=== PATIENT | male | born 1935 | race Caucasian/White ===

== ENCOUNTER 2017-11-18 02:00 | Inpatient (IN) | payer OTHER ==
[~2017-11-18] VITALS: Ht 170.2 cm; Wt 80.7 kg
[~2017-11-18 02:00] MED LIST: ATORVASTATIN CA10 M1 PO; AZULFIDINE500 M1 PO; DULOXETINE HCL30 MG PO; FERROUS SULFAT325 M3 PO; FLOMAX0.4 M1 PO; FOLIC ACID1 M1 PO; LISINOPRIL5 M1 PO; LOPRESSOR50 M1 PO; METHOTREXATE2.5 M2 PO; OMEPRAZOLE20 M2 PO; ST. JOSEPH ASPI81 M1 PO; TRAZODONE HCL50 M1 PO; TYLENOL EXTRA500 M2 PO; VERAPAMIL ER180 M1 PO
[2017-11-18] MEDS ORDERED: VITAMIN B-121000 MC3 (09:18)
--- NOTE | 2017-11-18 09:48 | Admission Core Measures ---
Acute Coronary Syndrome (CM) ACS Core Measures Acute Coronary Syndrome Diagnosis No Congestive Heart Failure (NEW) CHF Core Measures Congestive Heart Failure Diagnosis No Cerebrovascular Accident CVA Core Measures CVA/TIA Diagnosis No Venous Thromboembolism VTE Core Kira (View Protocol) VTE Risk Factors Surgery No Mechanical VTE Prophylaxis d/t N/A MechProphylax Ordered No VTE Pharm Prophylaxis d/t NA PharmProphylax ordered Problem List As ranked by this Provider includes Assessment & Plan 1. Unilateral primary osteoarthritis, right hip HOME MEDS Home Med List Acetaminophen (Tylenol Extra Strength) 500 MG TABLET 2 TAB PO BID pain ( Reported) Aspirin (Coryell Aspirin) 81 MG TABLET.DR 1 TAB PO DAILY HEARTHEALTH ( Reported) Atorvastatin Calcium 10 MG TABLET 1 TAB PO QPM CHOLESTEROL (Reported) Duloxetine HCl 30 MG CAPSULE.DR 3 CAP PO DAILY NERVE PAIN (Reported) Ferrous Sulfate 325 MG (65 MG IRON) TABLET 1 TAB PO DAILY IRON (Reported) Folic Acid 1 MG TABLET 1 TAB PO BID SUPPLEMENT (Reported) Lisinopril 5 MG TABLET 1 TAB PO DAILY BP (Reported) Methotrexate 2.5 MG TABLET 6 TAB PO QW PMR (Reported) Metoprolol Tartrate (Lopressor) 50 MG TABLET 25 MG PO BID BP (Reported) Omeprazole 20 MG CAPSULE.DR 1 CAP PO DAILY REFLUX (Reported) Sulfasalazine (Azulfidine) 500 MG TABLET 1 TAB PO DAILY UNKNOWN (Reported) Tamsulosin HCl (Flomax) 0.4 MG CAP.ER.24H 1 CAP PO DAILY PROSTATE (Reported) Trazodone HCl 50 MG TABLET 1 TAB PO QPM SLEEP (Reported) Verapamil HCl (Verapamil ER) 180 MG TABLET.ER 1 TAB PO DAILY BP (Reported)
[2017-11-18] MEDS ORDERED: MIRALAX17 G1 PO (09:50)
[2017-11-18] MEDS ORDERED: ASPIRIN EC81 M1 PO (09:50)
[2017-11-18] MEDS ORDERED: COLACE100 M1 PO (09:50)
[2017-11-18] MEDS ORDERED: DILAUDID2 M1 PO (09:50)
--- NOTE | 2017-11-18 09:54 | Patient Discharge Instructions ---
Discharge Instructions General Discharge Information You were seen/treated for: Right hip pain related to unilateral primary osteoarthritis You had these procedures: Right total hip replacement Watch for these problems: Increasing pain despite the use of pain medication Increasing redness, warmth or swelling Drainage of any type from incision Inability to bear weight on operative leg Persistent nausea and vomiting Fever greater than 101.5 degrees Do not soak the wound: Yes No bath, but you may shower: Yes Other wound care: Please keep wound clean and dry. No ointments or lotions of any type on or near incision at any time. No exceptions. Your dressing will be changed by your nurse on the second day after your surgery. Daily dry dressing changes are recommended each day thereafter. Do not soak your wound in a bath or pool at any time until otherwise indicated by your surgeon. You may shower, please dry wound immediately after shower with a clean towel. Special Instructions: Aspirin: You are taking this medication to help prevent blood clot formation. Please take with food to protect your stomach lining. Please take as directed. Constipation: Pain medication can cause constipation. Your surgeon has recommended that you take Colace and miralax each day. You may discontinue this medication if you develop loose stool or diarrhea. If you wish to continue this medication, it is available over the counter. If you are unable to move your bowels after several days, if you are unable to pass gas and are developing bloating, nausea, or vomiting as a result, please contact your doctor. Diet Continue normal diet: Yes Recommended Diet: Heart Healthy Activity Full Activity/No Limits: No Activity Self Limited: Yes Acute Coronary Syndrome Inclusion Criteria At DC or during hospital stay patient has or had the following: ACS DIAGNOSIS No Discharge Core Measures Meds if any: Prescribed or Continued at Discharge Meds if any: NOT Prescribed or Continued at Discharge Congestive Heart Failure Inclusion Criteria At DC or during hospital stay patient has or had the following: CHF DIAGNOSIS No Discharge Core Measures Meds if any: Prescribed or Continued at Discharge Meds if any: NOT Prescribed or Continued at Discharge Cerebrovascular accident Inclusion Criteria At DC or during hospital stay patient has or had the following: CVA/TIA Diagnosis No Discharge Core Measures Meds if any: Prescribed or Continued at Discharge Meds if any: NOT Prescribed or Continued at Discharge Venous thromboembolism Inclusion Criteria VTE Diagnosis No VTE Type NONE VTE Confirmed by (Test) NONE Discharge Core Measures - Per Current guidelines, there needs to be overlap - treatment for the first 5 days of Warfarin therapy. - If discharged on Warfarin prior to 5 days of - overlap therapy, the patient will need to be - assessed for post discharge needs including - *Post discharge parental anticoagulation - *Warfarin and/or parental anticoagulation education - *Follow up date to check INR post discharge At least 5 days overlap therapy as Inpatient No Meds if any: Prescribed or Continued at Discharge Note: Overlap Therapy is Warfarin and Anticoagulant Meds if any: NOT Prescribed or Continued at Discharge
--- NOTE | 2017-11-18 09:55 | Surgical Discharge Summary ---
Visit Information Visit Dates Admission Date: 11/18/17 Discharge Date: 11/21/17 History of Present Illness Chief Complaint: Right hip pain related to unilateral primary osteoarthritis Medical History Isolation History: Standard Surgical History Pertinent Surgical History: non-contributory Review of Systems: See H&P Hospital Course Course Attending Physician: Gianluca Sr MD Primary Care Physician: Unknown Hospital Course: Patient was admitted to the hospital for an elective total joint replacement. The procedure was tolerated well and patient was transferred to a general surgical floor. Diet was advanced and tolerated. The patient was evaluated and treated by physical therapy. During his hospitalization, he was hypoxic while ambulating with PT in the mid 80s range. CXR was negative and patient oxygen saturation improved to the mid-high 90s with TRC, incentive spirometry use and nebulizer treatment. At the time of hospital discharge, the vital signs were stable, neurovascular status was intact, and pain was controlled with the use of oral pain medications. Allergies: Coded Allergies: No Known Allergies (11/16/17) Disposition Summary Disposition Principal Diagnosis: Right hip pain related to unilateral primary osteoarthritis Additional Diagnosis: None Discharge Disposition: home health services Discharge Instructions General Discharge Information Code Status: Full Code Patient's Diet: Heart healthy, advance as tolerated Patient's Activity: WBAT Follow-Up Instructions/Appts: Follow up with Dr. Sr in 6 weeks from date of surgery. Please call office to arrange &/or confirm this appointment. Medications at Discharge Discharge Medications: Stop taking the following medications: Aspirin (Searcy Aspirin) 81 MG TABLET. ORAL DAILY Continue taking these medications: Acetaminophen (Tylenol Extra Strength) 500 MG TABLET 2 Tablet ORAL TWICE DAILY Comments: NOT GIVEN IN HOSPITAL Atorvastatin Calcium (Atorvastatin Calcium) 10 MG TABLET 1 Tablet ORAL Every night Comments: Last Taken: 11/19/17 Time: 5:24 PM Duloxetine HCl (Duloxetine HCl) 30 MG CAPSULE. 3 Capsule ORAL DAILY Comments: Last Taken: 11/20/17 Time: 8:35 AM Folic Acid (Folic Acid) 1 MG TABLET 1 Tablet ORAL TWICE DAILY Comments: NOT TAKEN IN HOSPITAL Ferrous Sulfate (Ferrous Sulfate) 325 MG (65 MG IRON) TABLET 1 Tablet ORAL DAILY Comments: NOT TAKEN IN HOSPITAL Lisinopril (Lisinopril) 5 MG TABLET 1 Tablet ORAL DAILY Comments: Last Taken: 11/20/17 Time: 8:34 AM Methotrexate (Methotrexate) 2.5 MG TABLET 6 Tablet ORAL Once a Week Comments: NOT GIVEN IN HOSPITAL Metoprolol Tartrate (Lopressor) 50 MG TABLET 25 Milligram ORAL TWICE DAILY Comments: Last Taken: 11/20/17 Time: 8:35 AM Omeprazole (Omeprazole) 20 MG CAPSULE.DR 1 Capsule ORAL DAILY Comments: Last Taken: 11/20/17 Time: 6:46 AM Sulfasalazine (Azulfidine) 500 MG TABLET 1 Tablet ORAL DAILY Comments: NOT GIVEN IN HOSPITAL Tamsulosin HCl (Flomax) 0.4 MG CAP.ER.24H 1 Capsule ORAL DAILY Comments: Last Taken: 11/20/17 Time: 8:35 AM Trazodone HCl (Trazodone HCl) 50 MG TABLET 1 Tablet ORAL Every night Comments: NOT GIVEN IN HOSPITAL Verapamil HCl (Verapamil ER) 180 MG TABLET.ER 1 Tablet ORAL DAILY Comments: Last Taken: 11/20/17 Time: 8:36 AM Cyanocobalamin (Vitamin B-12) 1,000 MCG TABLET Comments: NOT TAKEN IN HOSPITAL Start taking the following new medications: Aspirin (Ecotrin*) 81 MG TABLET.DR 1 Tablet ORAL TWICE DAILY Qty = 60 No Refills Docusate Sodium (Colace) 100 MG CAPSULE 1 Capsule ORAL TWICE DAILY Qty = 14 No Refills Instructions: DISCONTINUE USE IF YOU DEVELOP LOOSE STOOL OR DIARRHEA Polyethylene Glycol 3350 (Miralax) 17 GRAM POWD.PACK 1 Packet ORAL DAILY Qty = 7 No Refills Instructions: dissolve in water, DISCONTINUE USE IF YOU DEVELOP LOOSE STOOL OR DIARRHEA Hydromorphone HCl (Dilaudid) 2 MG TABLET 1-2 Tablet ORAL EVERY 4-6 HOURS NEEDED as needed for PAIN Qty = 36 No Refills
--- NOTE | 2017-11-18 10:04 | RADIOLOGY REPORT ---
EXAMINATION: XR HIP, RIGHT CLINICAL INFORMATION: Status post right total hip arthroplasty. COMPARISON: None TECHNIQUE: Two views of the right hip. FINDINGS: Status post right total hip arthroplasty. Components noncemented. No evidence of immediate hardware failure or complication. There is gas in the surrounding soft tissues. IMPRESSION: Expected postoperative appearance of the right total hip arthroplasty. No evidence of immediate hardware failure or complication.
[2017-11-18 11:05] VITALS: BP 118/78
--- NOTE | 2017-11-18 13:56 | PN- Orthopedic ---
Subjective Subjective: POST-OP No complaints. Tolerating clears. No nausea. Reports baseline neuropathy of his feet. Out of bed to bathroom. No dizziness. No shortness of breath. No chest pains. Voided without difficulty. Anticipates discharge to home tomorrow. Objective Vital Signs and I&Os Vital Signs Date Time Temp Pulse Resp B/P B/P Pulse O2 O2 Flow FiO2 Mean Ox Delivery Rate 11/18 1412 94.0 68 20 108/72 94 Nasal 2.0L Cannula 11/18 1145 95 Room Air 11/18 1105 97.6 48 16 118/78 95 Room Air Intake & Output 11/18 1600 11/18 0800 11/18 0000 11/17 1600 11/17 0800 11/17 0000 Intake Total 585 Output Total Balance 585 Intake, IV 225 Intake, Oral 360 Patient 178 lb Weight Weight Standing Scale Measurement Method Physical Exam: General - alert & oriented x 3. comfortable. no acute distress. Lungs - clear bilaterally. no w/r/r. Cardiac - s1s2. reg. Abdomen - soft. nontender. Extremities - warm bilaterally. no c/c/e. right hip dressing c/d/i. no hematoma. no drains. nvi. Current Medications: Current Medications Sig/Gianna Start time Last Medication Dose Route Stop Time Status Admin Acetaminophen 1,000 MG Q6 11/18 1200 AC 11/18 IV 11/19 0601 1257 Acetaminophen 650 MG Q4P PRN 11/18 1115 AC PO Acetaminophen 0 .STK-MED ONE 11/18 0708 DC PO Acetaminophen 975 MG ONCE 11/18 0000 DC PO 11/18 2359 Aspirin Buffered 81 MG BID 11/18 2100 AC PO Atorvastatin Calcium 10 MG 1700 11/18 1700 AC PO Cefazolin Sodium 2 GM IQ8 11/18 1600 AC N/A 1 UNIT IV 11/19 0029 Cefazolin Sodium 2,000 MG ONCE 11/18 0000 DC IV 11/18 2359 Dextrose/Sodium 1,000 ML .[id number] 11/18 1115 AC 11/18 Chloride IV 1128 Docusate Sodium 100 MG BID 11/18 2100 AC PO Duloxetine HCl 90 MG DAILY 11/19 0900 AC PO Hydromorphone HCl 2 MG Q4P PRN 11/18 1115 AC PO Hydromorphone HCl 4 MG Q4P PRN 11/18 1115 AC PO Lisinopril 5 MG DAILY 11/19 899 AC PO Metoprolol Tartrate 25 MG BID 11/18 2100 AC PO Morphine Sulfate 2 MG Q2P PRN 11/18 1115 AC IV Omeprazole 40 MG DAILY AC 11/19 699 AC PO Ondansetron HCl 4 MG Q6P PRN 11/18 1115 AC IV Oxycodone HCl 0 .STK-MED ONE 11/18 0708 DC PO Oxycodone HCl 10 MG ONCE 11/18 0000 DC PO 11/18 2359 Polyethylene Glycol 17 GM DAILY 11/19 09 AC PO Promethazine HCl 12.5 MG Q6P PRN 11/18 1115 AC IV 11/25 0944 Tamsulosin HCl 0.4 MG DAILY 11/19 899 AC PO Verapamil HCl 180 MG DAILY 11/19 899 AC PO Assessment/Plan Assessment/Plan This 82 year old male with hx htn, hld, nph, gerd, ra, is POD#0 s/p right total hip replacement advance diet as tolerated pain control as ordered PT eval asa bid - dvt ppx ancef x 2 doses post-op home meds ordered, including beta radha f/u AM labs d/c planning for home with services tomorrow will d/w Core Measures Venous Thromboembolism VTE Risk Factors Surgery No Mechanical VTE Prophylaxis d/t N/A MechProphylax Ordered No VTE Pharm Prophylaxis d/t NA PharmProphylax ordered
[2017-11-18 14:12] VITALS: BP 108/72
--- NOTE | 2017-11-18 14:53 | Operative Report ---
Operative/Inv Procedure Report Surgery Date: 11/18/17 Name of Procedure: Right total hip replacement Pre-Operative Diagnosis: Primary right hip DJD Post-Operative Diagnosis: Same Estimated Blood Loss: 250 Surgeon/Canteen Attendant: Orin MOYER,Gianluca Corcoran Anesthesia: block Operative/Procedure Note Note: Description of Procedure: The patient was taken to the operating room and positively identified. After induction of spinal anesthesia and administration of appropriate pre-operative antibiotics, the patient was positioned supine on the operating room table and all bony prominences were well padded. After performing a surgical timeout, the right lower extremity was prepped and draped in the usual sterile fashion. A direct anterior approach was made to the right hip. The incision was carried sharply through superficial soft tissues to the level of the fascia. Meticulous hemostasis was maintained with Bovie electocautery. The fascia over the tensor fascia cinda muscle was opened sharply and the interval between the TFL and the sartorius was entered bluntly taking care to stay lateral to the lateral femoral cutaneous nerve. Retractors were placed around the femoral neck and the pericapsular fat was identified. The ascending branches of the lateral femoral circumflex vessels were identified and carefully coagulated. The pericapsular fat and anterior capsule were then resected. A napkin ring osteotomy was performed and the femoral head was removed without difficulty. Attention was then turned to the acetabulum. After appropriate placement of retractors, the acetabulum was exposed. Soft tissue was cleaned from the acetabular margin and notch. Overhanging osteophytes were removed and the teardrop was exposed. The acetabulum was then sequentially reamed to accept a 60 mm Janie Tritanium hemispherical solid shell. This was impacted into place in the appropriate position and fitted with a 36 mm Trident X3 zero degree polyethylene insert. Attention was then turned to the femur. After performing the appropriate ligament releases, the proximal femur was exposed. It was then sequentially broached to accept a size #4 [place] Accolade 2 stem. This was trialed for leg length and stability. The trial component was removed and the final component was impacted into place. The trunnion was carefully cleaned and fit with a 36 mm, +0 Biolox delta ceramic femoral head. The hip was reduced and put through a full range of motion and found to be stable. The articular space was then irrigated with sterile saline. The periarticular soft tissues were infilitrated with Marcaine. The fascial layer was closed with interrupted #1 vicryl suture and the skin was re-approximated with interrupted 2 -0 vicryl. The skin was closed with a running 3-0 V-Lock suture. Steri-strips and a sterile dressing were applied. The patient was awakened and taken to the recovery room in satisfactory condition.
[2017-11-18 14:58] VITALS: BP 140/70
[2017-11-18 17:06] VITALS: BP 140/60
[2017-11-18 18:57] VITALS: BP 130/58
[2017-11-18 22:49] VITALS: BP 132/60
[2017-11-19 02:42] VITALS: BP 122/64
[2017-11-19 08:04] LABS: ABSOLUTE BASOPHIL COUNT 0 /CUMM (0.0-0.2); ABSOLUTE EOSINOPHIL COUNT 0.2 /CUMM (0.0-0.7); ABSOLUTE GRANULOCYTE CT 5.7 /CUMM (1.4-6.5); ABSOLUTE LYMPH COUNT 1.3 /CUMM (1.2-3.4); BASOPHIL % 0.3 % (0.0-2.0); EOSINOPHIL % 2.6 % (0-5); GRANULOCYTE % 68.7 % (42.2-75.2); HEMATOCRIT 35.7 % (42-52); MEAN CORPUSCULAR HGB 31.4 PG (27.0-31.0); MEAN CORPUSCULAR HGB CONC 33.2 G/DL (33.0-37.0); MEAN CORPUSCULAR VOLUME 94.7 FL (80.0-94.0); MEAN PLATELET VOLUME 7.3 FL (7.4-10.4); PLATELET COUNT 190 /CUMM (130-400); RBC DISTRIBUTION WIDTH 14.4 % (11.5-14.5); RED BLOOD CELL CT 3.77 /CUMM (4.70-6.10); WHITE BLOOD CELL COUNT 8.3 /CUMM (4.8-10.8)
--- NOTE | 2017-11-19 08:18 | PN- Orthopedic ---
See Addendum Subjective Subjective: Patient reports postop pain last night with is improved this morning. Reports a hx of neuropathy, denies chest pain, sob, difficulty breathing. Tolerating a diet without nausea or vomiting. Reports ambulating oob to void. Denies ambulating with PT. He offers no other complaints. Objective Vital Signs and I&Os Vital Signs Date Time Temp Pulse Resp B/P B/P Pulse O2 O2 Flow FiO2 Mean Ox Delivery Rate 11/19 0800 93 Room Air 11/19 0242 98.6 63 20 122/64 94 11/19 0000 96 Nasal 2.0L Cannula 11/18 2335 Nasal 2.0L Cannula 11/18 2249 98.1 55 18 132/60 95 11/18 2008 50 128/6 11/18 1857 98.6 52 18 130/58 96 11/18 1706 98.0 49 18 140/60 95 11/18 1600 97 Nasal 2.0L Cannula 11/18 1458 97.5 54 20 140/70 97 Nasal 2.0L Cannula 11/18 1412 94.0 68 20 108/72 94 Nasal 2.0L Cannula 11/18 1145 95 Room Air 11/18 1105 97.6 48 16 118/78 95 Room Air Intake & Output 11/19 1600 11/19 0800 11/19 0000 11/18 1600 11/18 0800 11/18 0000 Intake Total 800 425 585 Output Total 500 550 Balance 300 -125 585 Intake, IV 600 225 225 Intake, Oral 200 200 360 Number 0 Bowel Movements Output, Urine 500 550 Patient 178 lb Weight Weight Standing Scale Measurement Method Physical Exam: Gen - resting comfortably eating breakfast in nad Lungs - CTAB Cardiac - S1S2 noted Abdomen - soft, nontender Ext - R hip dressing c/d/i, moves all extrtemities, motor an sensory intact, alps in place, no edema or calf tenderness Current Medications: Current Medications Sig/Gianna Start time Last Medication Dose Route Stop Time Status Admin Acetaminophen 1,000 MG Q6 11/18 1200 DC 11/19 IV 11/19 0601 0551 Acetaminophen 650 MG Q4P PRN 11/18 1115 AC PO Acetaminophen 975 MG ONCE 11/18 0000 DC PO 11/18 2359 Aspirin Buffered 81 MG BID 11/18 2100 AC 11/18 PO 2001 Atorvastatin Calcium 10 MG 1700 11/18 1700 AC 11/18 PO 1832 Cefazolin Sodium 2 GM IQ8 11/18 1600 DC 11/18 N/A 1 UNIT IV 11/19 0029 2315 Cefazolin Sodium 2,000 MG ONCE 11/18 0000 DC IV 11/18 2359 Dextrose/Sodium 1,000 ML .[id number] 11/18 1115 DC 11/18 Chloride IV 2357 Docusate Sodium 100 MG BID 11/18 2100 AC 11/18 PO 2002 Duloxetine HCl 90 MG DAILY 11/19 09 AC PO Hydromorphone HCl 2 MG Q4P PRN 11/18 1115 AC 11/19 PO 0731 Hydromorphone HCl 4 MG Q4P PRN 11/18 1115 AC 11/19 PO 0022 Lisinopril 5 MG DAILY 11/19 899 AC PO Metoprolol Tartrate 25 MG BID 11/18 2100 AC PO Morphine Sulfate 2 MG Q2P PRN 11/18 1115 AC 11/19 IV 0301 Omeprazole 40 MG DAILY AC 11/19 07 AC 11/19 PO 0550 Ondansetron HCl 4 MG Q6P PRN 11/18 111 AC IV Oxycodone HCl 10 MG ONCE 11/18 0000 DC PO 11/18 2359 Polyethylene Glycol 17 GM DAILY 11/19 09 AC PO Promethazine HCl 12.5 MG Q6P PRN 11/18 111 AC IV 11/25 0944 Tamsulosin HCl 0.4 MG DAILY 11/19 09 AC PO Verapamil HCl 180 MG DAILY 11/19 899 AC PO Results Last 48 Hours of Labs: Laboratory Tests 11/20 627 Chemistry Sodium (137 - 145 mmol/L) 139 Potassium (3.5 - 5.1 mmol/L) 4.5 Chloride (98 - 107 mmol/L) 102 Carbon Dioxide (22 - 30 mmol/L) 30 Anion Gap (5 - 16) 8 BUN (9 - 20 mg/dL) 13 Creatinine (0.7 - 1.2 mg/dL) 0.8 Estimated GFR (>60 ml/min) > 60 BUN/Creatinine Ratio (7 - 25 %) 16.3 Hematology CBC w Diff NO MAN DIFF REQ WBC (4.8 - 10.8 /CUMM) 8.3 RBC (4.70 - 6.10 /CUMM) 3.77 L Hgb (14.0 - 18.0 G/DL) 11.8 L Hct (42 - 52 %) 35.7 L MCV (80.0 - 94.0 FL) 94.7 H MCH (27.0 - 31.0 PG) 31.4 H MCHC (33.0 - 37.0 G/DL) 33.2 RDW (11.5 - 14.5 %) 14.4 Plt Count (130 - 400 /CUMM) 190 MPV (7.4 - 10.4 FL) 7.3 L Gran % (42.2 - 75.2 %) 68.7 Lymphocytes % (20.5 - 51.1 %) 16.2 L Monocytes % (1.7 - 9.3 %) 12.2 H Eosinophils % (0 - 5 %) 2.6 Basophils % (0.0 - 2.0 %) 0.3 Absolute Granulocytes (1.4 - 6.5 /CUMM) 5.7 Absolute Lymphocytes (1.2 - 3.4 /CUMM) 1.3 Absolute Monocytes (0.10 - 0.60 /CUMM) 1.0 H Absolute Eosinophils (0.0 - 0.7 /CUMM) 0.2 Absolute Basophils (0.0 - 0.2 /CUMM) 0 Assessment/Plan Assessment/Plan 82 M POD 1 s/p R THR, awaiting PT eval PT eval, WBAT Cardiac diet, d/c IVF Pain control prn DVT ppx - asa 81 bid, alps, teds Home meds on board, hold bb Wean O2 Labs reviewed, stable Anticipate d/c home with [facility] today Will d/w Core Measures Venous Thromboembolism VTE Risk Factors Surgery No Mechanical VTE Prophylaxis d/t N/A MechProphylax Ordered No VTE Pharm Prophylaxis d/t NA PharmProphylax ordered
[2017-11-19 15:25] VITALS: BP 136/66
[2017-11-19 22:07] VITALS: BP 122/76
[2017-11-20 07:01] VITALS: BP 120/70
--- NOTE | 2017-11-20 08:31 | PN- Orthopedic ---
See Addendum Subjective Subjective: POD 2 RIGHT FAUSTO COMPLAINS OF HIP SORENESS WITH MOTION SEEN PATIENT WHILE HE WAS STANDING WITH WALKER -PULSE 02 SAT 87% DENIES SOB, CHEST PAIN OR LIGHT-HEADEDNESS Review of Systems Constitutional: Denies: chills, fever, weakness. Cardiovascular: Denies: chest pain, peripheral edema. Respiratory: Denies: cough, short of breath, wheezing. Gastrointestinal: Denies: bloating, constipation, nausea. Genitourinary: Denies: no symptoms. Musculoskeletal: Reports: joint pain, joint swelling. Denies: muscle pain. Objective Vital Signs and I&Os Vital Signs Date Time Temp Pulse Resp B/P B/P Pulse O2 O2 Flow FiO2 Mean Ox Delivery Rate 11/20 0701 98.1 77 20 120/70 95 Room Air 11/19 2207 98.9 77 18 122/76 94 Room Air 11/19 2006 77 122/76 11/19 1525 98.3 78 18 136/66 94 Room Air 11/19 0959 52 118/70 11/19 0912 52 118/70 11/19 0911 52 118/70 11/19 0911 52 118/70 Intake & Output 11/20 1600 11/20 0800 11/20 0000 11/19 1600 11/19 0800 11/19 0000 Intake Total 250 700 480 800 425 Output Total 250 500 550 Balance 0 700 480 300 -125 Intake, IV 10 600 225 Intake, Oral 240 700 480 200 200 Number 0 Bowel Movements Output, Urine 250 500 550 ALERT AND ORIENTED -STANDING IN BATHROOM WITH CLAIM TRAINEE HE IS ABLE TO MANEUVER THROUGH ROOM WITH WALKER AND HELP CHEST -RONCHI THAT CLEARED WITH COUGH -EXPIRATORY WHEEZE RIGHT BASE, NO CRACKLES ABD -SOFT WITHOUT DISTENTION, PASSING GAS, NO bm YET HEART -RRR WITHOUT MRG RIGHT HIP -DRESSINGS CHANGED, WOUND CDI NO ERYTHEMA OR DRAINAGE, THIGH WITH MILD EDEMA, CALVES SOFT BILATERALLY NO EDEMA Assessment/Plan Assessment/Plan POD2 RIGHT FAUSTO ENCOURAGE IS -ORDERED TRC FOR LOW O2 SAT NO CHEST PAIN, SOB OR TACHYCARDIA ON ASA THERAPY FOR DVT PROPH -CALVES SOFT, NO LEG PAIN WILL ORDER CXR IF SYMPTOMS PERSISTENT AFTER TRC D/C PLANNING FOR HOME WITH SERVICE TOMORROW Core Measures Venous Thromboembolism VTE Risk Factors Surgery No Mechanical VTE Prophylaxis d/t N/A MechProphylax Ordered No VTE Pharm Prophylaxis d/t NA PharmProphylax ordered
[2017-11-20 13:44] VITALS: BP 132/70
--- NOTE | 2017-11-20 16:09 | RADIOLOGY REPORT ---
EXAMINATION: XR CHEST CLINICAL INFORMATION: Postop hypoxia. COMPARISON: None TECHNIQUE: 2 views of the chest were obtained. FINDINGS: Lungs are clear. No pulmonary vascular congestion. There is no pleural effusion. The heart size is normal. The cardiac and mediastinal contours are normal. There are calcifications of the thoracic aorta. There are multilevel degenerative changes of dorsal spine. There is degenerative spurring of the right and left humeral head at the glenohumeral joint. IMPRESSION: Unremarkable examination.
[2017-11-20 22:24] VITALS: BP 140/60
[2017-11-21 06:20] VITALS: BP 124/60
[2017-11-21 08:21] VITALS: BP 124/64
--- NOTE | 2017-11-21 08:58 | PN- Orthopedic ---
Subjective Subjective: Patient reports postop pain worse with ambulation and controlled with pain regimen. He denies chest pain, sob, difficulty breathing. Tolerating a diet without nausea or vomiting. Per PT, patient O2 was 94-96% range and HR in 70s while ambulating. He offers no other complaints. Objective Vital Signs and I&Os Vital Signs Date Time Temp Pulse Resp B/P B/P Pulse O2 O2 Flow FiO2 Mean Ox Delivery Rate 11/21 820 124/64 11/21 08 124/64 11/21 0821 84 124/64 11/21 0821 124/64 11/21 0620 98.6 67 20 124/60 92 Room Air 11/20 2224 98.8 73 20 140/60 97 Room Air 11/20 2008 73 140/60 11/20 1344 98.3 67 20 132/70 95 Room Air 11/20 1031 Room Air Intake & Output 11/21 0811/21 0000 11/20 1600 11/20 0811/20 0000 Intake Total 100 100 360 250 700 Output Total 350 800 250 Balance -250 -700 360 0 700 Intake, IV 10 Intake, Oral 100 100 360 240 700 Number 0 Bowel Movements Output, Urine 350 800 250 Physical Exam: Gen - resting comfortably eating breakfast in nad Lungs - Good inspiratroy effort, CTAB no w/r/r Cardiac - S1S2 noted Abdomen - soft, nontender Ext - R hip dressing c/d/i, moves all extrtemities, motor an sensory intact, alps in place, no edema or calf tenderness Current Medications: Current Medications Sig/Gianna Start time Last Medication Dose Route Stop Time Status Admin Acetaminophen 650 MG Q4P PRN 11/18 1115 AC PO Aspirin Buffered 81 MG BID 11/18 2100 11/21 PO 08 Atorvastatin Calcium 10 MG 1700 11/18 1700 AC 11/20 PO 1746 Docusate Sodium 100 MG BID 11/18 2100 11/21 PO 08 Duloxetine HCl 90 MG DAILY 11/19 09 AC 11/21 PO 08 Hydromorphone HCl 2 MG Q4P PRN 11/18 1115 AC 11/21 PO 0607 Hydromorphone HCl 4 MG Q4P PRN 11/18 1115 11/20 PO 0249 Lisinopril 5 MG DAILY 11/19 09 AC 11/21 PO 0821 Metoprolol Tartrate 25 MG BID 11/18 2100 AC 11/21 PO 0821 Morphine Sulfate 2 MG Q2P PRN 11/18 1115 AC 11/19 IV 0301 Omeprazole 40 MG DAILY AC 11/19 0700 AC 11/21 PO 0604 Ondansetron HCl 4 MG Q6P PRN 11/18 1115 AC IV Polyethylene Glycol 17 GM DAILY 11/19 0900 AC 11/21 PO 0820 Promethazine HCl 12.5 MG Q6P PRN 11/18 1115 AC IV 11/25 0944 Tamsulosin HCl 0.4 MG DAILY 11/19 0900 AC 11/21 PO 0821 Verapamil HCl 180 MG DAILY 11/19 0900 AC 11/21 PO 0821 Assessment/Plan Assessment/Plan 81 M POD 3 s/p R THR with hypoxia when ambulating likely due to deconditioning, resolved OOB w/ PT, WBAT Cardiac diet Pain control prn DVT ppx - asa 81 bid, alps, teds Home meds on board TR, encourage IS Anticipate d/c home with [facility] today Will d/w Core Measures Venous Thromboembolism VTE Risk Factors Surgery No Mechanical VTE Prophylaxis d/t N/A MechProphylax Ordered No VTE Pharm Prophylaxis d/t NA PharmProphylax ordered
== END 2017-11-21 12:21 | disposition home health service (06) | DRG 470 ==
LOC: DELPENDDIS → SDA 02:00 → ENRESERV 10:01 → ENTRNSPT 10:26 → EDTRNSPT 10:46 → EDTRNSPTSTS 10:46 → 2NA 10:58 → CMPTRNSPT 11:19 → ENPENDDIS 11-19 09:00 → ENTRNSPT 11-21 11:57 → 2NA 11-21 12:21 → CMPTRNSPT 11-21 12:40
PROVIDERS: Nurse Practitioner
PROC: 0SR904A Replacement of Right Hip Joint with Ceramic on Polyethylene Synthetic Substitute, Uncemented, Open Approach (ICD-10-PCS; principal; 2017-11-18)
DX: M16.11 Unilateral primary osteoarthritis, right hip (principal); F17.210 Nicotine dependence, cigarettes, uncomplicated; I10 Essential (primary) hypertension; G47.33 Obstructive sleep apnea (adult) (pediatric); K21.9 Gastro-esophageal reflux disease without esophagitis; E78.5 Hyperlipidemia, unspecified; F32.9 Major depressive disorder, single episode, unspecified; Z96.653 Presence of artificial knee joint, bilateral; R09.02 Hypoxemia
CPT/HCPCS: 2NAP; 36592; 71046; 73502-RT; 82436; 88304; 97110-GO; 97116-GO; 97161-GP; 97530-GO; J0131; J0690; J0735; J2405; J2550; J7042